=== PATIENT | female | born 1960 | race Caucasian/White ===

== ENCOUNTER → 2018-03-31 | Outpatient (CLI) | payer BC ==
--- NOTE | 2018-04-01 14:01 | MM ---
Reason for exam: screening (asymptomatic). Last mammogram was performed 6 years and 5 months ago. History: Patient is postmenopausal. Physical Findings: A clinical breast exam by your physician is recommended on an annual basis and results should be correlated with mammographic findings. MG Screening Mammo w CAD Bilateral CC and MLO view(s) were taken. Prior study comparison: October 18, 2011, CAD bilateral diagnostic mammogram. March 29, 2006, workup left diagnostic mammogram. There are scattered fibroglandular densities. Asymmetric breast tissue on MLO view 9am posterior questionable summation. This finding is changed when compared with previous exams. ASSESSMENT: Incomplete: need additional imaging evaluation, BI-RAD 0 RECOMMENDATION: Special view mammogram of the left breast. If lesion persists on supplemental views, image directed ultrasound is recommended. [facility] will attempt to contact patient to return for supplemental views and ultrasound if indicated.
== END | disposition home or self-care (01) ==
LOC: RADMAMWWP 13:06
PROVIDERS: ATTEND Family Medicine
DX: Z12.31 Encounter for screening mammogram for malignant neoplasm of breast (principal)
CPT/HCPCS: 77067

== ENCOUNTER → 2018-04-08 | Outpatient (CLI) | payer BC ==
--- NOTE | 2018-04-09 01:56 | US ---
EXAMINATION TYPE: US thyroid st tissue head/neck DATE OF EXAM: 04/08/2018 COMPARISON: NONE CLINICAL HISTORY: 57-year-old female E04.9 goiter. TECHNIQUE: Multiple sonographic images of the thyroid gland are obtained. FINDINGS: GLAND SIZE: Right Lobe: 7.8 x 3.2 x 2.8 cm Overall Parenchyma: heterogenous Left Lobe: 7.0 x 3.5 x 3.1 cm Overall Parenchyma: heterogeneous Isthmus Thickness: 0.9 cm NODULES RIGHT: # of nodules measured on right: 2 1. 1.3 x 1.1 x 1.5cm hypoechoic solid nodule at the upper pole with well-defined margins; present w ith microcalcifications. This nodule is wider than tall and shows intranodular vascularity. Prior size: no prior 2. 1.8 X 1.1 x 1.8 cm isoechoic solid nodule at the upper pole with well-defined margins; . This nod ule is wider than tall and shows intranodular vascularity. Prior size: no prior Bilateral neck scanned, no evidence of lymphadenopathy. Certification Officer notes: Gland is diffusely enlarged and heterogeneous bilaterally with numerous nodules th at are difficult to distinguish. Two distinct nodules measured on right. Several bilateral cystic nod ules also seen. IMPRESSION: 1. Thyromegaly with multiple nodules and diffuse glandular heterogeneity. Correlate for multinodular goiter. 2. There are 2 dominant nodules in the right upper pole measuring 1.8 and 1.5 cm. The decision to bio psy should be made on a clinical basis.
== END | disposition home or self-care (01) ==
LOC: RADUSWWP 16:47
PROVIDERS: ATTEND Family Medicine
DX: E01.0 Iodine-deficiency related diffuse (endemic) goiter (principal)
CPT/HCPCS: 76536

== ENCOUNTER → 2018-04-10 | Outpatient (CLI) | payer BC ==
--- NOTE | 2018-04-11 08:46 | MM ---
Reason for exam: additional evaluation requested from abnormal screening. Last mammogram was performed less than 1 month ago. History: Patient is postmenopausal and history of other cancer. Physical Findings: Nurse did not find any significant physical abnormalities on exam. MG Work Up Mamm w CAD LT Spot compression MLO view(s) were taken of the left breast. Prior study comparison: March 31, 2018, bilateral MG screening mammo w CAD. October 18, 2011, CAD bilateral diagnostic mammogram. There are scattered fibroglandular densities. There is no discrete abnormality including area of concern left upper MLO view on compression. These results were verbally communicated with the patient and result sheet given to the patient on 04/10/18. ASSESSMENT: Benign, BI-RAD 2 RECOMMENDATION: Return to routine screening mammogram schedule for both breasts.
== END | disposition home or self-care (01) ==
LOC: RADMAMWWP 14:57
PROVIDERS: ATTEND Family Medicine
DX: R92.8 Other abnormal and inconclusive findings on diagnostic imaging of breast (principal)
CPT/HCPCS: 77065

== ENCOUNTER → 2020-02-10 | Outpatient (CLI) | payer BC ==
--- NOTE | 2020-02-15 11:10 | MM ---
Reason for exam: screening (asymptomatic). Last mammogram was performed 1 year and 10 months ago. History: Patient is postmenopausal and has history of other cancer at age 43. Took hormonal contraceptives for 7 years. Physical Findings: A clinical breast exam by your physician is recommended on an annual basis and results should be correlated with mammographic findings. MG Screening Mammo w CAD Bilateral CC and MLO view(s) were taken. Prior study comparison: April 10, 2018, left breast MG work up mamm w CAD LT. March 31, 2018, bilateral MG screening mammo w CAD. There are scattered fibroglandular densities. No significant changes when compared with prior studies. ASSESSMENT: Benign, BI-RAD 2 RECOMMENDATION: Routine screening mammogram of both breasts in 1 year.
== END | disposition home or self-care (01) ==
LOC: RADMAMWWP 07:36
PROVIDERS: ATTEND Nurse Practitioner Women's Health
DX: Z12.31 Encounter for screening mammogram for malignant neoplasm of breast (principal)
CPT/HCPCS: 77067

== ENCOUNTER → 2021-05-31 | Outpatient (CLI) | payer BC ==
--- NOTE | 2021-06-05 11:39 | MM ---
Reason for exam: screening (asymptomatic). Last mammogram was performed 1 year and 4 months ago. History: Patient is postmenopausal and has history of other cancer at age 43. Took hormonal contraceptives for 7 years. Physical Findings: A clinical breast exam by your physician is recommended on an annual basis and results should be correlated with mammographic findings. MG 3D Screening Mammo W/Cad Bilateral CC and MLO view(s) were taken. Prior study comparison: February 10, 2020, bilateral MG screening mammo w CAD. April 10, 2018, left breast MG work up mamm w CAD LT. There are scattered fibroglandular densities. There are benign appearing round calcifications bilaterally. There is no discrete abnormality. ASSESSMENT: Benign, BI-RAD 2 RECOMMENDATION: Routine screening mammogram of both breasts in 1 year.
== END | disposition home or self-care (01) ==
LOC: RADMAMWWP 15:04
PROVIDERS: ATTEND Family Medicine
DX: Z12.31 Encounter for screening mammogram for malignant neoplasm of breast (principal)
CPT/HCPCS: 77063; 77067

== ENCOUNTER → 2023-11-14 | Outpatient (CLI) | payer MEDICARE ==
--- NOTE | 2023-11-18 10:41 | MM ---
Reason for Exam: Screening (asymptomatic). Last mammogram was performed 1 year(s) and 3 month(s) ago. Patient History: Menarche at age 10. First Full-Term at age 28. Late child-bearing (after 28). Right ovary removed at age 44. Hysterectomy at age 44. Postmenopausal. Patient has history of breast feeding. Other cancer, age 43. Patient used Hormonal Contraceptives for 7 years. Risk Values: Verenice 5 year model risk: 2.3%. NCI Lifetime model risk: 8.6%. Prior Study Comparison: 02/10/2020 Bilateral Screening Mammogram, [facility]. 05/31/2021 Bilateral Screening Mammogram, [facility]. 08/15/2022 Bilateral MG 3D screening mammo w/cad, [facility]. Tissue Density: The breasts are almost entirely fatty. Findings: Analyzed By CAD. Right breast: There is no suspicious group of microcalcifications or new suspicious mass. Left breast: There is no suspicious group of microcalcifications or new suspicious mass. Overall Assessment: Negative, BI-RAD 1 Management: Screening Mammogram of both breasts in [address] [facility] will attempt to contact patient to return for supplemental views and ultrasound if indicated. Patient should continue monthly self-breast exams. A clinical breast exam by your physician is recommended on an annual basis. This exam should not preclude additional follow-up of suspicious palpable abnormalities. Note on Verenice scores and lifetime risk: 1. A Verenice score greater than 3% is considered moderate risk. If this is the case, consider specialist referral to assess eligibility for a risk reducing agent. 2. If overall lifetime risk for the development of breast cancer is 20% or higher, the patient may qualify for future screening with alternating mammogram and breast MRI. Electronically signed and approved by: Keshawn Cantrell DO
== END | disposition home or self-care (01) ==
LOC: RADMAMWWP 15:36
PROVIDERS: ATTEND Family Medicine
DX: Z12.31 Encounter for screening mammogram for malignant neoplasm of breast (principal); Z78.0 Asymptomatic menopausal state
CPT/HCPCS: 77063; 77067

== ENCOUNTER → 2023-11-18 | Outpatient (CLI) | payer MEDICARE ==
--- NOTE | 2023-11-18 16:01 | CTL ---
EXAMINATION TYPE: CT Low Dose Lung DATE OF EXAM ORDERED: 11/18/2023 COMPARISON: None HISTORY: . Low Dose CT Lung Screening CT DLP: 86.[address] CTDI: 2.4 mGy IV CONTRAST USED: None. SCREENING VISIT: First visit COMPARISON: None. TECHNIQUE: Low dose computed tomography scan was performed through the chest at 1 millimeter thick se ctions and reconstructed images in the coronal plane at [address] DIAGNOSTIC QUALITY: Satisfactory FINDINGS: LUNG NODULES: Pleural based nodule right upper lobe anteriorly image 107 measuring 1.2 cm. No additio nal nodules identified at this time. LUNGS: COPD: Severity: Mild Fibrosis: Severity:None Lymph nodes: None Other findings: None RIGHT PLEURAL SPACE: Effusion: None Calcification: None Thickening: None Pneumothorax: None LEFT PLEURAL SPACE: Effusion: None Calcification: None Thickening: None Pneumothorax: None HEART: Heart Size: Mildly enlarged Coronary calcification: Mild Pericardial effusion: None OTHER FINDINGS: Upper abdomen: Nonspecific hypoattenuating lesion lateral segment left hepatic lobe measuring 2.8 cm. This is nonspecific on this unenhanced study. Bony thorax: Degenerative changes Supraclavicular region: No significant abnormalityOther: No significant abnormalityI IMPRESSION: 1. Suspicious pleural-based right upper lobe nodule. PET/CT recommended to exclude neoplasm. 2. Hepatic lesion as discussed. Reflect a cyst although given the lack of contrast appropriate charac terization is not possible. Further evaluation with ultrasound. FOLLOW UP CT CHEST RECOMMENDATION: PET/CT recommended. CT LUNG RAD: LUNG RAD CATEGORY suspicious category 4A
== END | disposition home or self-care (01) ==
LOC: RADCTMAIN 15:00
PROVIDERS: ATTEND Family Medicine
DX: Z12.2 Encounter for screening for malignant neoplasm of respiratory organs (principal); K76.9 Liver disease, unspecified; F17.210 Nicotine dependence, cigarettes, uncomplicated
CPT/HCPCS: 71271

== ENCOUNTER → 2023-11-22 | Outpatient (CLI) | payer MEDICARE ==
--- NOTE | 2023-11-23 04:03 | US ---
EXAMINATION TYPE: US thyroid st tissue head/neck DATE OF EXAM: 11/22/2023 COMPARISON: NONE CLINICAL INDICATION: Female, 63 years old with history of R22.1 ENLARGE LYMPH NODE; Posterior right n callie palpable x few months, no pain. TECHNIQUE: Sonographic images taken FINDINGS/IMPRESSION: Patients area of concern scanned. Hypoechoic lesion seen, nonvascular= 2.2 x 1 .1 x 0.3 cm. Compressible. Smooth border with elongated shape. Most consistent with a benign lymph n ode.
== END | disposition home or self-care (01) ==
LOC: RADUSWWP 14:55
PROVIDERS: ATTEND Family Medicine
DX: R22.1 Localized swelling, mass and lump, neck (principal)
CPT/HCPCS: 76536

== ENCOUNTER → 2023-12-08 | Outpatient (CLI) | payer MEDICARE ==
--- NOTE | 2023-12-08 17:13 | PE ---
EXAMINATION TYPE: PET CT fusion skull to thigh DATE OF EXAM: 12/08/2023 CLINICAL INDICATION:Female, 63 years old with history of R911; TECHNIQUE: Following the intravenous administration of 0.33 mCi of F-18 FDG, whole body images are performed from the skull base to the midthigh. Images are reviewed on the computer in the coronal, a xial, and sagittal planes. Reconstructed rotating images are created on independent workstation and reviewed on the computer. A non-contrast CT is performed in conjunction with the PET scan. Glucose level 100 mg/dL CT DLP: 529 mGycm, Automated exposure control for dose reduction was used. COMPARISON: CT 11/18/2023, PET/CT None, FINDINGS: Mediastinal SUV mean is 2.2. Hepatic parenchyma SUV mean is 3.2. SKULL BASE AND NECK: No suspicious radiotracer activity. CHEST, MEDIASTINUM, AND HILAR REGION: * Pleural-based nodule measuring up to 13 mm not significantly changed from 11/18/2023. Max SUV 1.1. * No suspicious FDG activity. ABDOMEN AND PELVIS: No suspicious radiotracer activity. MUSCULOSKELETAL STRUCTURES: No suspicious radiotracer activity. OTHER CT: Atherosclerosis of the carotid bifurcation. Enlarged bilateral thyroid gland with multinodu lar goiter change. The heart is mildly enlarged for size. Left hepatic lobe probable cyst. Few scatte red colonic diverticula. IMPRESSION: 1. No suspicious radiotracer activity. 2. Right upper lobe pulmonary nodule measuring up to 13 mm along the periphery is not significantly changed. No significant FDG activity. Consider surveillance in [address] chest.
== END | disposition home or self-care (01) ==
LOC: RADPETMAIN 11:28
PROVIDERS: ATTEND Nurse Practitioner Women's Health
DX: R91.1 Solitary pulmonary nodule (principal)
CPT/HCPCS: 78815; A9552

== ENCOUNTER → 2024-06-26 | Outpatient (CLI) | payer MEDICARE ==
[2024-06-26 12:01] LABS: African American GFR (CKD) >90 (>60 ml/min/1.73 sqM); Blood Urea Nitrogen 17 mg/dL (7-17); Non-African American GFR(CKD) 88 (>60 ml/min/1.73 sqM)
--- NOTE | 2024-06-26 12:39 | CT ---
EXAMINATION TYPE: CT chest w con CT DLP: 735 mGycm, Automated exposure control for dose reduction was used. DATE OF EXAM: 06/26/2024 12:30 PM COMPARISON: PET/CT 12/08/2023, CT low-dose lung 11/18/2023 CLINICAL INDICATION:Female, 64 years old with history of R91.1 SOLITARY PULMONARY NODULE; PHH, lung n odule TECHNIQUE: Multiple axial images were obtained through the chest following the administration of 100 cc of Isovue 300. . Coronal and sagittal reformats reviewed. FINDINGS: LUNGS/ PLEURA: No pleural effusion, pneumothorax, focal consolidation. Redemonstration of a pleural-b ased anterior right upper lobe 1.5 cm nodular opacity which demonstrates less solid appearance to abner or examination (series 4, image 22). No new or enlarging nodules. AIRWAY: Patent and unremarkable.. HEART: Size within normal limits.No pericardial effusion. MEDIASTINUM: No evidence of adenopathy. VASCULATURE: No aortic aneurysm. MUSCULOSKELETAL: Minimal multilevel degenerative disc disease. SOFT TISSUES/LYMPH NODES: Unremarkable. LOWER NECK: Thyroid gland is surgically absent. UPPER ABDOMEN: Redemonstration of several hepatic cysts. IMPRESSION: Relatively stable size but less solid appearing right upper lobe pleural based 1.5 cm nodular opacity . No new or enlarging pulmonary nodules. No suspicious FDG activity on prior PET/CT. Follow-up CT katerin st in 6-12 months is recommended. [facility], , 06/26/2024 12:37 PM
== END | disposition home or self-care (01) ==
LOC: RADCTMAIN 11:28
PROVIDERS: ATTEND Internal Medicine Critical Care Medicine
DX: R91.1 Solitary pulmonary nodule (principal)
CPT/HCPCS: 82565; 84520; 71260; 36415; Q9967

== ENCOUNTER → 2025-01-12 | Outpatient (CLI) | payer MEDICARE ==
--- NOTE | 2025-01-12 13:44 | MM ---
Reason for Exam: Screening (asymptomatic). Last mammogram was performed 1 year(s) and 2 month(s) ago. Patient History: Menarche at age 10. First Full-Term at age 28. Late child-bearing (after 28). Right ovary removed at age 44. Hysterectomy at age 44. Postmenopausal. Patient has history of breast feeding. Other cancer, age 43. Patient used Hormonal Contraceptives for 7 years. Risk Values: Verenice 5 year model risk: 2.3%. NCI Lifetime model risk: 8.2%. Prior Study Comparison: 05/31/2021 Bilateral Screening Mammogram, [facility]. 08/15/2022 Bilateral MG 3D screening mammo w/cad, [facility]. 11/14/2023 Bilateral MG 3D screening mammo w/cad, [facility]. Tissue Density: There are scattered areas of fibroglandular density. Findings: Analyzed By CAD. There is no suspicious group of microcalcifications or new suspicious mass in either breast. Overall Assessment: Negative, BI-RAD 1 Management: Screening Mammogram of both breasts in 1 year. . Patient should continue monthly self-breast exams. A clinical breast exam by your physician is recommended on an annual basis. This exam should not preclude additional follow-up of suspicious palpable abnormalities. Note on Verenice scores and lifetime risk: 1. A Verenice score greater than 3% is considered moderate risk. If this is the case, consider specialist referral to assess eligibility for a risk reducing agent. 2. If overall lifetime risk for the development of breast cancer is 20% or higher, the patient may qualify for future screening with alternating mammogram and breast MRI. [facility], , 01/12/2025 1:41 PM. Electronically signed and approved by: Ej Minaya M.D.
== END | disposition home or self-care (01) ==
LOC: RADMAMWWP 12:41
PROVIDERS: ATTEND Family Medicine
DX: Z12.31 Encounter for screening mammogram for malignant neoplasm of breast (principal); R92.323 Mammographic fibroglandular density, bilateral breasts; Z78.0 Asymptomatic menopausal state; Z92.0 Personal history of contraception
CPT/HCPCS: 77063; 77067